=== PATIENT | female | born 1970 | race Caucasian/White ===

== ENCOUNTER 2019-01-11 07:19 | Inpatient (IN) | payer OTHER ==
[~2019-01-11] VITALS: Ht 172.7 cm; Wt 85.4 kg
[2019-01-11] MEDS ORDERED: LACTATED RINGERS 1,000 ML IV SCH (08:48)
[2019-01-11] MEDS ORDERED: TAMO20TA PO (08:51)
[2019-01-11] MEDS ORDERED: CELE200C PO (08:51)
[2019-01-11] MEDS ORDERED: ACET-1600 PO (08:51)
[2019-01-11] MEDS ORDERED: CITA40TA5 PO (08:51)
[2019-01-11] MEDS ORDERED: GABA300C10 PO (08:51)
[2019-01-11] MEDS ORDERED: LIDOCAINE-MPF 1%, 2ML ONE (08:54)
[2019-01-11] MEDS ORDERED: SCOPOLAMINE PATCH, 1.5MG PATCH.TD72 TD ONE (09:00)
[2019-01-11] MEDS ORDERED: PLEASE ENTER HEIGHT AND WEIGHT MC SCH (09:00)
[2019-01-11] MEDS ORDERED: LIDOCAINE-MPF 1%, 2ML INFIL ONE (09:00)
[2019-01-11 09:04] VITALS: BP 142/96
[2019-01-11 09:07] LABS: HCG UR SG 1.039 (1.003-1.030)
[2019-01-11 09:19] LABS: BASOPHILS # (AUTO) 0.01 x10^3/uL (0-0.1); BASOPHILS % (AUTO) 0 % (0-1); EOSINOPHILS # (AUTO) 0.15 x10^3/uL (0-0.4); EOSINOPHILS % (AUTO) 2 % (1-7); LYMPHOCYTES # (AUTO) 1.21 x10^3/uL (1-3.4); LYMPHOCYTES % (AUTO) 20 % (22-44); MD NO; MEAN CORPUSCULAR HEMOGLOBIN 32.3 pg (27.0-34.8); MEAN CORPUSCULAR VOLUME 97.9 fL (80-100); MEAN PLATELET VOLUME 7.7 fL (7.4-10.4); MONOCYTES # (AUTO) 0.49 x10^3/uL (0.2-0.8); MONOCYTES % (AUTO) 8 % (2-9); NEUTROPHILS # (AUTO) 4.28 x10^3/uL (1.8-6.8); NEUTROPHILS % (AUTO) 70 % (42-75); PLATELET COUNT 279 x10^3/uL (130-400); RED BLOOD COUNT 4.33 x10^6/uL (3.82-5.3); RED CELL DISTRIBUTION WIDTH 13.3 % (9.6-15.2)
[2019-01-11 09:32] LABS: ANION GAP 6 mmol/L (5-15); CHLORIDE 107 mmol/L (98-107); CREATININE 0.84 mg/dL (0.55-1.02)
[2019-01-11] MEDS ORDERED: EPINEPHRINE 1 MG/ML, 1ML ONE (10:49)
[2019-01-11] MEDS ORDERED: KETOROLAC 60 MG/2 ML ONE (10:49)
[2019-01-11] MEDS ORDERED: ROPIvacaine/PF 0.2%, 20 ML ONE (10:49)
[2019-01-11] MEDS ORDERED: VANCOMYCIN 1,000 MG ONE (10:49)
[2019-01-11] MEDS ORDERED: TRANEXAMIC ACID 100 MG/ML, 10ML ONE ×2 (10:49)
[2019-01-11] MEDS ORDERED: FENTANYL PF 250 MCG/5ML ONE ×2 (12:16→13:33)
[2019-01-11] MEDS ORDERED: PROPOFOL 50 ML ONE ×2 (12:16→13:30)
[2019-01-11] MEDS ORDERED: MIDAZOLAM 1 MG/ML, 2ML ONE (12:16)
[2019-01-11] MEDS ORDERED: DEXAMETHASONE 4 MG/ML, 1ML ONE (12:28)
[2019-01-11] MEDS ORDERED: ROCURONIUM 10 MG/ML,10ML ONE (12:28)
[2019-01-11] MEDS ORDERED: SUCCINYLCHOLINE 20 MG/ML, 10ML ONE (12:28)
[2019-01-11] MEDS ORDERED: MORPHINE SULFATE 4 MG/ML, 1ML ONE (13:26)
[2019-01-11] MEDS ORDERED: FENTANYL PF 100 MCG/2ML IV PRN (13:30)
[2019-01-11] MEDS ORDERED: EPHEDRINE 50 MG/ML, 1ML IM PRN (13:30)
[2019-01-11] MEDS ORDERED: EPHEDRINE 50 MG/ML, 1ML IVPush PRN (13:30)
[2019-01-11] MEDS ORDERED: DIPHENHYDRAMINE 50 MG/ML, 1ML IVPush PRN (13:30)
[2019-01-11] MEDS ORDERED: MEPERIDINE/PF 25MG/ML,1ML IVPush PRN (13:30)
[2019-01-11] MEDS ORDERED: MIDAZOLAM 1 MG/ML, 2ML IV PRN (13:30)
[2019-01-11] MEDS ORDERED: ONDANSETRON 2MG/ML, 2ML IV PRN (13:30)
[2019-01-11] MEDS ORDERED: PROMETHAZINE 25 MG/ML, 1ML IV PRN (13:30)
[2019-01-11] MEDS ORDERED: DIAZEPAM 5 MG/ML, 2ML IVPush PRN (13:30)
[2019-01-11] MEDS ORDERED: hydrALAzine 20 MG/ML, 1ML IV PRN (13:30)
[2019-01-11] MEDS ORDERED: CEFAZOLIN 1,000 MG ONE ×2 (13:30)
[2019-01-11] MEDS ORDERED: METOPROLOL 1 MG/ML, 5ML IV PRN (13:30)
[2019-01-11] MEDS ORDERED: OXYcodone 5 MG/5 ML ORAL.SOL UDC PO PRN (13:30)
[2019-01-11] MEDS ORDERED: MORPHINE SULFATE 4 MG/ML, 1ML IVPush PRN (13:30)
[2019-01-11] MEDS ORDERED: ONDANSETRON ODT 8 MG PO PRN (13:30)
[2019-01-11] MEDS ORDERED: ONDANSETRON 2MG/ML, 2ML ONE (13:31)
[2019-01-11] MEDS ORDERED: OXYcodone IR 5MG TABLET PO PRN (14:30)
[2019-01-11] MEDS ORDERED: ONDANSETRON 4 MG TABLET PO PRN (14:30)
[2019-01-11] MEDS ORDERED: HYDROmorphone 1 MG/ML, 1ML INJ IVPush PRN (14:30)
[2019-01-11] MEDS: POTASSIUM CHLORIDE 20 MEQ in D5%-0.45% NACL 1,000 ML IV SCH ×2 (15:29→20:33)
[2019-01-11] MEDS: OXYcodone IR 5MG TABLET PO PRN (16:03)
[2019-01-11] MEDS: ACETAMINOPHEN 325 MG TABLET PO PRN (16:04)
[2019-01-11 19:30] VITALS: BP 101/67
[2019-01-11] MEDS: CEFAZOLIN PMX 1GM/50ML 50 ML IVPB SCH (20:33)
[2019-01-11] MEDS: DOCUSATE 100 MG CAPSULE PO SCH (20:33)
[2019-01-11 23:49] VITALS: BP 101/61
[2019-01-12] MEDS: ACETAMINOPHEN 325 MG TABLET PO PRN ×3 (00:04→09:36)
[2019-01-12] MEDS: OXYcodone IR 5MG TABLET PO PRN ×3 (00:04→09:36)
[2019-01-12 03:19] VITALS: BP 96/60
[2019-01-12] MEDS: CEFAZOLIN PMX 1GM/50ML 50 ML IVPB SCH (04:23)
[2019-01-12 08:00] VITALS: BP 108/72
[2019-01-12] MEDS: DOCUSATE 100 MG CAPSULE PO SCH (08:05)
[2019-01-12] MEDS ORDERED: TAMOXIFEN 10 MG TABLET PO SCH (09:00)
[2019-01-12] MEDS ORDERED: CITALOPRAM 20 MG TABLET PO SCH (09:00)
[2019-01-12] MEDS ORDERED: ASPI-515 PO (09:04)
[2019-01-12] MEDS ORDERED: DOCU-131 PO (09:05)
[2019-01-12] MEDS ORDERED: ACET-2065 PO (09:06)
[2019-01-12] MEDS ORDERED: OXYC5TAB3 PO (09:09)
[2019-01-12] MEDS ORDERED: ASPIRIN 81 MG TABLET EC PO SCH (18:00)
== END 2019-01-12 10:24 | disposition home or self-care (01) | DRG 470 ==
LOC: ORIP 07:19 → 4NE 15:25 → DCLOUNGE 01-12 10:07
PROVIDERS: ADMIT Orthopaedic Surgery; ATTEND Orthopaedic Surgery
PROC: 0SRB06A Replacement of Left Hip Joint with Oxidized Zirconium on Polyethylene Synthetic Substitute, Uncemented, Open Approach (ICD-10-PCS; principal; 2019-01-11 12:30)
DX: M16.12 Unilateral primary osteoarthritis, left hip (principal); M65.9 Synovitis and tenosynovitis, unspecified
CPT/HCPCS: 36415; 72170; 80048; 81025; 85025; 86850; 86900; 87081; C1713; G0378; J0171; J0690; J1100; J1885; J2250; J2405; J2704; J2795; J3010; J3370; J3480; Q0162; C1776; J0330; J2270